=== PATIENT | male | born 1995 | race Hispanic/Latino ===

== ENCOUNTER 2017-07-21 19:01 | Emergency (ER) | payer BC ==
[2017-07-21 19:26] VITALS: BP 137/69; PULSE 79; RESP 19; TEMP 98.6; O2SAT 96
--- NOTE | 2017-07-21 19:50 | ED PDOC ---
HPI: General Adult Time Seen by Provider: 07/21/17 19:50 Chief Complaint (Nursing): Flu-like Symptoms Chief Complaint (Provider): sore throat History Per: Patient Additional Complaint(s): Patient has had sore throat and body aches for the past week associated with generalized fatigue and weight loss. Patient states his girlfriend was recently diagnosed with mono and he would like to be tested. He denies any abd pain or cough. Patient is able to tolerate liquids and solids but he has decreased appetite. He denies any vomiting. Past Medical History Reviewed: Historical Data, Nursing Documentation, Vital Signs Vital Signs: Last Vital Signs Temp 98.6 F 07/21/17 19:22 Pulse 79 07/21/17 19:22 Resp 19 07/21/17 19:22 BP 137/69 07/21/17 19:22 Pulse Ox 96 07/21/17 19:58 - Medical History PMH: No Chronic Diseases - Surgical History Surgical History: No Surg Hx - Family History Family History: States: No Known Family Hx - Living Arrangements Living Arrangements: With Family - Social History Current smoker - smoking cessation education provided: No Alcohol: None Drugs: Denies - Allergies Allergies/Adverse Reactions: Allergies Allergy/AdvReac Type Severity Reaction Status Date / Time No Known Allergies Allergy Verified 07/21/17 19:26 Review of Systems ROS Statement: Except As Marked, All Systems Reviewed And Found Negative Constitutional: Positive for: Weight loss. Negative for: Fever, Chills (fatigue ) ENT: Positive for: Throat Pain, Throat Swelling Cardiovascular: Negative for: Chest Pain Respiratory: Negative for: Cough Gastrointestinal: Negative for: Nausea, Vomiting, Abdominal Pain, Diarrhea Genitourinary Male: Negative for: Dysuria Neurological: Negative for: Headache, Dizziness Physical Exam - Reviewed Nursing Documentation Reviewed: Yes Vital Signs Reviewed: Yes - Physical Exam Appears: Positive for: Well, Non-toxic, No Acute Distress Skin: Negative for: Rash Eye Exam: Positive for: Normal appearance ENT: Positive for: Pharyngeal Erythema. Negative for: Tonsillar Exudate Cardiovascular/Chest: Positive for: Regular Rate, Rhythm Respiratory: Positive for: Normal Breath Sounds Gastrointestinal/Abdominal: Positive for: Soft. Negative for: Tenderness, Distended, Guarding, Rebound Extremity: Positive for: Normal ROM Neurologic/Psych: Positive for: Alert, Oriented - ECG O2 Sat by Pulse Oximetry: 96 Pulse Ox Interpretation: Normal Medical Decision Making Medical Decision Makin21 year old with sore throat, fatigue and weight loss Plan: PO motrin Monospot Rapid strep and throat culture [place] and strep are negative. Patient aware of all diagnostic testing results. He states that Motrin helped with her pain. Advised NSAIDs as needed and follow up with ENT, referral given. Disposition - Clinical Impression Clinical Impression: Pharyngitis - Patient ED Disposition Is Patient to be Admitted: No Counseled Patient/Family Regarding: Studies Performed, Diagnosis, Need For Followup - Disposition Referrals: Yuriy Cade MD [Staff Provider] - Disposition: Routine/Home Disposition Time: 21:58 Condition: STABLE Additional Instructions: Tylenol or Advil for pain as needed. Rest and plenty of fluids. Follow-up with primary doctor or with the ear, nose and throat specialist for any persistent symptoms. Instructions: Pharyngitis (ED) Forms: Drawn to Scale (Amharic)
== END 2017-07-21 22:02 | disposition home or self-care (01) ==
LOC: H.ER 19:01
DX: J02.9 Acute pharyngitis, unspecified (principal)